=== PATIENT | male | born 1980 | race Caucasian/White ===

== ENCOUNTER 2020-01-01 11:24 | Inpatient (IN) | payer SELFPAY ==
[2020-01-01 13:10] LABS: ABS Eosinophils 0.1 10^3/ul (0-0.6); ABS Lymphocytes 2.4 10^3/ul (1.0-4.8); ABS Monocytes 0.8 10^3/ul (0-0.8); ABS Neutrophils 6.1 10^3/ul (1.5-7.7); Eosinophil % 0.6 %; Hematocrit 41 % (42-52); Lymphocyte % 25.7 %; Mean Corpuscular HGB Conc 34 g/dL (31-36); Mean Corpuscular Hemoglobin 29 pg (27-31); Mean Corpuscular Volume 85 fL (80-94); Mean Platelet Volume 8.3 fL (7.4-10.4); Platelet Count 313 10^3/uL (150-450); Red Blood Count 4.82 10^6 /uL (4.18-5.48); Red Cell Distribution Width 14 % (10-15); White Blood Count 9.3 10^3/uL (3.5-10.8)
[2020-01-01 13:19] LABS: INR 1.11 (0.82-1.09)
[2020-01-01 13:32] LABS: ALT 43 U/L (7-52); AST 50 U/L (13-39); Albumin 5.2 g/dL (3.2-5.2); Albumin/Globulin Ratio 1.5 (1-3); Alkaline Phosphatase 66 U/L (34-104); Anion Gap 8 mmol/L (2-11); BUN/Creatinine Ratio 10.9 (8-20); Blood Urea Nitrogen 10 mg/dL (6-24); CO2 Carbon Dioxide 28 mmol/L (22-32); Calcium 9.9 mg/dL (8.6-10.3); Chloride 101 mmol/L (101-111); EGFR African American 111.4 (>60); EGFR Non-African American 92.1 (>60); Globulin 3.4 g/dL (2-4); Glucose 93 mg/dL (70-100); Sodium 137 mmol/L (135-145); Total Protein 8.6 g/dL (6.4-8.9)
[2020-01-01 13:34] LABS: Troponin I 5.22 ng/mL (<0.03)
[2020-01-01] MEDS ORDERED: Aspirin 81 mg CHEW TAB* 81 MG TAB.CHEW PO ONE (13:39)
--- NOTE | 2020-01-01 13:51 | ED ---
HPI Chest Pain - HPI Summary HPI Summary: Patient is a 39-year-old male with no significant past medical history presenting to the ED with a 2 day history of feeling "off." States at 5am yesterday he awoke to use the restroom, had SOB and some visual changes with no associated CP. Laid back down and continued to not feel well with lightheadedness. Later than morning, laid in bed all day not feeling himself. Did endorse some episodes of chest tightness without pain throughout the day. Associated SOB. He also endorses feeling losing his breath while walking from the bedroom to the bathroom yesterday. [place] like this morning his heart was skipping a beat. He states all symptoms have been running together and he is unsure which started first, etc. No cough, congestion, N/V, diaphoresis. Did endorse a SEXTON yesterday, but none currently. On arrival to the ED - pt states he is asympatomatic. He denies any cardiac history. He denies smoking, quit 5 years ago. Takes no medications. Family hx includes grandmother with "heart things." Denies other family members with cardiac problems. Denies any recent illness. - History of Current Complaint Chief Complaint: EDGeneral Time Seen by Provider: 01/01/20 11:45 Hx Obtained From: Patient Onset/Duration: Started Days Ago Time of Onset: 05:00 - on 12/31/19 Timing: Intermittent Initial Severity: Moderate Current Severity: None Pain Intensity: 0 Pain Scale Used: 0-10 Numeric Chest Pain Location: Diffuse Chest Pain Radiates: No Aggravating Factor(s): Exertion Alleviating Factor(s): Nothing Associated Signs and Symptoms: Positive: Chest Pain, Vision Changes, Anxiety, Recent Stress, Dizziness, Shortness of Breath, Lightheadedness, Palpitations. Negative: Diaphoresis, Nausea, Cough, Productive Cough, Nonproductive Cough - Risk Factors AMI/ACS Risk Factors: Family History, Smoking - Allergy/Home Medications Allergies/Adverse Reactions: Allergies Allergy/AdvReac Type Severity Reaction Status Date / Time No Known Allergies Allergy Verified 01/01/20 11:28 Home Medications: Home Medications NK [No Home Medications Reported] 01/01/20 [History Confirmed 01/01/20] PMH/Surg Hx/FS Hx/Imm Hx Previously Healthy: Yes - Immunization History Hx Pertussis Vaccination: No Immunizations Up to Date: Yes Infectious Disease History: No Infectious Disease History: Denies: Hx Clostridium Difficile, Hx Hepatitis, Hx Human Immunodeficiency Virus (HIV), Hx of Known/Suspected MRSA, Hx Shingles, Hx Tuberculosis, Hx Known/ Suspected VRE, Hx Known/Suspected VRSA, History Other Infectious Disease, Traveled Outside the [place] in Last 30 Days - Social History Occupation: Employed Full-time Lives: With Family Alcohol Use: None Hx Substance Use: No Substance Use Type: Reports: None Hx Tobacco Use: Yes Smoking Status (MU): Former Smoker Amount Used/How Often: 1/2 ppd Review of Systems Negative: Fever, Chills, Fatigue, Skin Diaphoresis Negative: Blurred Vision, Diplopia, Drainage Positive: Chest Pain - (pressure). Negative: Palpitations Negative: Shortness Of Breath, Cough Genitourinary: Negative Positive: no symptoms reported, see HPI Negative: Arthralgia, Myalgia Neurological/Mental Status: Other - dizziness Positive: Headache All Other Systems Reviewed And Are Negative: Yes Physical Exam Triage Information Reviewed: Yes Vital Signs On Initial Exam: Initial Vitals Temp Pulse Resp BP Pulse Ox 96.7 F 107 16 136/95 96 01/01/20 11:25 01/01/20 11:25 01/01/20 11:25 01/01/20 11:25 01/01/20 11:25 Vital Signs Reviewed: Yes Appearance: Positive: Well-Appearing, Well-Nourished Skin: Positive: Warm, Skin Color Reflects Adequate Perfusion Head/Face: Positive: Normal Head/Face Inspection Eyes: Positive: EOMI, CABRERA, Conjunctiva Clear Neck: Positive: Supple, No Lymphadenopathy Respiratory/Lung Sounds: Positive: Clear to Auscultation, Breath Sounds Present Cardiovascular: Positive: RRR, Pulses are Symmetrical in both Upper and Lower Extremities Musculoskeletal: Positive: Normal, Strength/ROM Intact Neurological: Positive: Speech Normal Psychiatric: Positive: Normal, Affect/Mood Appropriate Procedures - Sedation Patient Received Moderate/Deep Sedation with Procedure: No Diagnostics - Vital Signs Vital Signs Temp Pulse Resp BP Pulse Ox 01/01/20 12:38 77 16 124/82 99 01/01/20 12:08 100 26 128/101 98 01/01/20 12:01 87 13 96 01/01/20 11:25 96.7 F 107 16 136/95 96 - Laboratory Lab Results: Lab Results 01/01/20 01/01/20 01/01/20 Range/Units 13:02 13:02 13:02 WBC 9.3 (3.5-10.8) 10^3/uL RBC 4.82 (4.18-5.48) 10^6 /uL Hgb 14.0 (14.0-18.0) g/dL Hct 41 L (42-52) % MCV 85 (80-94) fL MCH 29 (27-31) pg MCHC 34 (31-36) g/dL RDW 14 (10-15) % Plt Count 313 (150-450) 10^3/uL MPV 8.3 (7.4-10.4) fL Neut % (Auto) 65.1 % Lymph % (Auto) 25.7 % Monroe % (Auto) 8.1 % Eos % (Auto) 0.6 % Baso % (Auto) 0.5 % Absolute Neuts (auto) 6.1 (1.5-7.7) 10^3/ul Absolute Lymphs (auto) 2.4 (1.0-4.8) 10^3/ul Absolute Monos (auto) 0.8 (0-0.8) 10^3/ul Absolute Eos (auto) 0.1 (0-0.6) 10^3/ul Absolute Basos (auto) 0.0 (0-0.2) 10^3/ul Absolute Nucleated RBC 0.0 10^3/ul Nucleated RBC % 0.0 INR (Anticoag Therapy) 1.11 H (0.82-1.09) Sodium 137 (135-145) mmol/L Potassium 4.0 (3.5-5.0) mmol/L Chloride 101 (101-111) mmol/L Carbon Dioxide 28 (22-32) mmol/L Anion Gap 8 (2-11) mmol/L BUN 10 (6-24) mg/dL Creatinine 0.92 (0.67-1.17) mg/dL Est GFR ( Amer) 111.4 (>60) Est GFR (Non-Af Amer) 92.1 (>60) BUN/Creatinine Ratio 10.9 (8-20) Glucose 93 (70-100) mg/dL Calcium 9.9 (8.6-10.3) mg/dL Total Bilirubin 0.50 (0.2-1.0) mg/dL AST 50 H (13-39) U/L ALT 43 (7-52) U/L Alkaline Phosphatase 66 (34-104) U/L Troponin I 5.22 H* (<0.03) ng/mL Total Protein 8.6 (6.4-8.9) g/dL Albumin 5.2 (3.2-5.2) g/dL Globulin 3.4 (2-4) g/dL Albumin/Globulin Ratio 1.5 (1-3) Result Diagrams: 01/01/20 13:02 01/01/20 13:02 Lab Statement: Any lab studies that have been ordered have been reviewed, and results considered in the medical decision making process. Chest Pain Course/Dx - Course Course Of Treatment: This patient is evaluated for chest tightness, SOB, lightheadedness over the past 36 hours. Denies fevers, sweats or chills. Denies cough or congestion. Labs obtained which shows an elevated troponin of 5.22. This was confirmed by a 5.0 troponin. Pt was given aspirin. Continues to be asympatomatic. EKG shows a rate of 88, normal sinus rhythm. Discussed with Dr. Bassett and ROSIO Hanks. Will be admitted. - Chest Pain Differential Diagnosis/HQI/PQRI: Acute UT, Angina, Other: - elevated trop - Diagnoses Provider Diagnoses: Elevated troponin, Dizziness - Provider Notifications Discussed Care Of Patient With: Angel Bassett Discharge ED - Sign-Out/Discharge Documenting (check all that apply): Patient Departure - Discharge Plan Condition: Fair Disposition: ADMITTED TO [facility] Referrals: No Primary Care Phys,NOPCP [Primary Care Provider] - - Billing Disposition and Condition Condition: FAIR Disposition: Admitted to [facility]
[2020-01-01 15:36] LABS: Influenza A Molecular Negative (Negative); Influenza B Molecular Negative (Negative)
[2020-01-01 16:29] LABS: Troponin I 5.43 ng/mL (<0.03)
[2020-01-01] MEDS ORDERED: Acetaminophen TAB* 325 MG PO PRN (16:54)
[2020-01-01] MEDS ORDERED: Perflutren Lipid Microsphere* 3 ML VIAL ONE (16:58)
--- NOTE | 2020-01-01 17:54 | ECHO ---
*[facility]* [place] [address] Fax #: [phone] Transthoracic Echocardiogram Patient: Myke Ro : 1980 Study Date: 01/01/2020 Age: 39 Gender: M HR: 94 bpm Height: 71 in /180.3 cm BSA: 2.42 m^2 Weight: 249.5 lb /113.4 kg BMI: 34.9 kg/m^2 *Costuming Supervisor: Michelle Banks [facility] *Referring Physician: * Eliseo Pérez MD *Reading Physician: * Eliseo Pérez MD Indications: Chest Pain, unspecified. History: Risk factors: Former tobacco use. Family history is significant for coronary artery disease. Conclusions Summary: - Left ventricle: The cavity size is normal. Wall thickness is mildly increased. Systolic function is normal. The estimated ejection fraction is 55-60%. Hypokinesis of the basal-midinferolateral and inferior myocardium. - Right ventricle: The cavity size is normal. Systolic function is normal. - Left atrium: The atrium is normal in size. - Pericardium, extracardiac: There is no significant pericardial effusion. - Pulmonary arteries: Systolic pressure can not be accurately estimated. - No significant valvular abnormalities noted. Recommendations: None prior for comparison. Study data: Transthoracic echocardiogram. Procedure: Transthoracic echocardiography was performed. Image quality was fair. Intravenous Definity , 2 mlswas administered. Complete 2D, spectral Doppler, and color flow Doppler. Location: Emergency department. Patient status: Inpatient. Patient room number: 10. Rhythm: Normal sinus rhythm. Findings Left ventricle: The cavity size is normal. Wall thickness is mildly increased. Systolic function is normal. The estimated ejection fraction is 55-60%. Regional wall motion abnormalities: Hypokinesis of the basal-midinferolateral and inferior myocardium. There is no consistent Doppler evidence of clinically significant diastolic dysfunction. Right ventricle: The cavity size is normal. Systolic function is normal. Left atrium: The atrium is normal in size. Right atrium: The atrium is normal in size. Mitral valve: The leaflets are normal thickness. There is no evidence of stenosis. There is no significant regurgitation. Aortic valve: The valve is trileaflet. The leaflets are normal thickness. There is no evidence of stenosis. There is no significant regurgitation. Tricuspid valve: The leaflets are normal thickness. There is no evidence of stenosis. There is trace regurgitation. Pulmonic valve: The leaflets are normal thickness. There is no evidence of stenosis. There is trace regurgitation. Aorta: The aortic root appears normal. The aortic arch appears normal. Pericardium: There is no significant pericardial effusion. Pulmonary arteries: Systolic pressure can not be accurately estimated. Systemic veins: Inferior vena cava: Not well visualized. Measurements Left ventricle Value Ref Aortic valve continued Value Ref TATA, LAX 4.3 cm 4.2 - 5.8 Janessa diam/bsa, ED 0.9 cm/m^2 ---- ESD, LAX 3.5 cm 2.5 - 4.0 Peak v, S 1.4 m/sec ---- FS, LAX (L) 18 % 25 - 43 VTI, S 26.5 cm ---- PW, ED, LAX (H) 1.3 cm 0.6 - 1.0 Mean grad, S 5.1 mm Hg ---- E', lat janessa, TDI 11.2 cm/sec >=10.0 Peak grad, S 7.8 mm H g ---- E/e', lat janessa, 7 TDI Mitral valve Value Ref E', med janessa, TDI 8.0 cm/sec >=7.0 Peak E 0.83 m/se c ---- E/e', med janessa, 10 Peak A 0.65 m/sec ---- TDI Decel time 158 ms ---- E', avg, TDI 9.6 cm/sec Peak grad, D 2.7 mm Hg ---- E/e', avg, TDI 9 <=14 Peak E/A ratio 1.28 ---- LVOT Value Ref Pulmonic valve Value Ref Peak kristen, S 1.01 m/sec Peak v, S 1 m/sec ---- VTI, S 22.5 cm Peak grad, S 4.0 mm Hg ---- Peak grad, S 4 mm Hg Mean grad, S 3 mm Hg Aortic root Value Ref Root diam 3.2 cm <4 .2 Ventricular septum Value Ref IVS, ED (H) 1.2 cm 0.6 - 1.0 Ascending aorta Value Ref AAo AP diam, S 2.8 cm ---- Right ventricle Value Ref AAo AP diam/bsa, S 1.1 cm/m^2 ---- TATA, LAX 3.0 cm Aortic arch Value Ref Left atrium Value Ref Arch diam 3.0 cm ---- AP dim, ES (H) 4.21 cm 3.00 - 4.00 Decending aorta Value Ref ML dim, A4C 4.1 cm Makenna peak kristen 1.12 m/sec ---- SI dim, A4C 5.7 cm Vol/bsa, ES, 2-p 22 ml/m^2 16 - 34 Pulmonary veins Value Ref Peak v, S 0.52 m/sec ---- Right atrium Value Ref Peak v, D 0.47 m/sec ---- SI dim, ES 4.5 cm 3.4 - 5.3 Peak S/D ratio 1.12 ---- ML dim, ES, A4C 4.3 cm 2.6 - 4.4 A rev duration 107 ms ---- Estimated RAP 8 mm Hg Aortic valve Value Ref Janessa diam, ED 2.3 cm Legend: (L) and (H) jean carlos values outside specified reference range. Prepared and electronically signed by Eliseo Pérez MD 01/01/2020 17:54
--- NOTE | 2020-01-01 18:09 | CONSULT ---
Subjective Date of Service: 01/01/20 Interval History: Admission and consult 01/01/2020 PCP: None Service: Hospitalist CC: chest pain Reason for consult: NSTEMI HPI Myke Ro is a 39 year old man with history as below. Yesterday at 5 AM went to bathroom told felt left upper chest pressure. Lasted 10 minutes. Went on and off would resolve with focus on breathing. Yesterday evening had chest pressure for seconds. Total discomfort time yesterday was 30 minute or less. No gI upset, dyspnea, edema, palpitations or syncope. Asymptomatic all day today. and mother in law convinced him to come to hospital today. Ruled in for ACS. No blood transfusions or PUD. Low iron as a child. 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 Quit smoking 5 years ago (8 pack years) No alcohol Smoking marijuana daily Fam hx: No first degree relative with early cv events Allergies: NKDA Medications Active Medications: Active Medications Generic Name Dose Route Start Last Admin Trade Name Freq PRN Reason Stop Dose Admin Acetaminophen 650 mg 01/01/20 16:54 Tylenol Tab* PO Q4H PRN mild to moderate pain Aspirin 81 mg 01/02/20 09:00 Aspirin 81 Mg Chew Tab* PO DAILY [facility] Atorvastatin Calcium 80 mg 01/01/20 21:00 Lipitor* PO 2100 [facility] Heparin Sodium (Porcine) 0 units 01/01/20 17:57 Heparin Vial(*) IV .BOLUS PRN HEPARIN DRIP PROTOCOL Heparin Sodium/Dextrose 25,000 units in 500 mls @ 0 mls/hr 01/01/20 17:00 Heparin Drip 25,000 Units(*) IV PER RATE [facility] Protocol Per Protocol Losartan Potassium 25 mg 01/02/20 09:00 Cozaar Tab* PO DAILY [facility] Metoprolol Tartrate 25 mg 01/01/20 21:00 Lopressor Tab* PO BID [facility] Ticagrelor 180 mg 01/01/20 18:30 Brilinta* PO 01/01/20 18:31 ONCE ONE Ticagrelor 90 mg 01/02/20 09:00 Brilinta* PO BID [facility] Home Medications: NK [No Home Medications Reported] 01/01/20 [History Confirmed 01/01/20] Review of Systems - Measurements Intake and Output: Intake and Output Last 24 Hours 12/30/19 12/31/19 01/01/20 01/02/20 06:59 06:59 06:59 06:59 Weight 250 lb - Review of Systems Constitutional Symptoms: Negative: Weight Gain, Weight Loss, Weakness, Fatigue, Fever, Night Sweats Dermatology: Negative: Rash, Skin Lesions HEENT: Negative: Change in Hearing, Vertigo Eyes: Negative: Change in Vision, Double Vision Thyroid: Negative: Palpitations, Weight Loss, Weight Gain Pulmonary: Negative: Cough, Sputum, Hemoptysis, Respiratory Distress, Shortness of Breath Cardiology: Positive: Chest Pain Negative: Shortness of Breath, Palpitations, Swelling of Ankles, Peripheral Vascular Dis, Edema, Syncope, Paroxysmal Nocturnal Dyspnea, Orthopnea Gastroenterology: Negative: Abdominal Pain, Nausea, Vomiting, Anorexia, Blood in Stools, Haematemesis, Melena Genital - Urinary: Positive: Other Negative: Dysuria, Hematuria, Nocturia Musculoskeletal: Negative: Joint Pain, Joint Stiffness Endocrinology: Positive: Obesity Negative: Polydipsia, Polyuria Hematologic/Lymphatic: Negative: Use of Anticoagulant, Use of Antiplatelet Drugs Neurology: Negative: Change in Speech, Change in Sphincter Function, Change in Walking, Hx of Stroke\TIA, Hx Seizures Psychiatry: Negative: Unusual Anxiety, Suicidal Ideation Allergic/Immunologic: Negative: Hx HIV, Immunocompromise Review of Systems Statement: All other review of systems negative, unless stated above. Objective Vital Signs: Temp Pulse Resp BP Pulse Ox 96.7 F 79 10 119/82 98 01/01/20 11:25 01/01/20 16:25 01/01/20 16:25 01/01/20 16:25 01/01/20 16:25 Appearance: nad, pleasant Ears/Nose/Mouth/Throat: Clear Oropharnyx, Mucous Membranes Moist Neck: NL Appearance and Movements; NL JVP Respiratory: Symmetrical Chest Expansion and Respiratory Effort, Clear to Auscultation Cardiovascular: NL Sounds; No Murmurs; No JVD, RRR, No Edema Abdominal: NL Sounds; No Tenderness; No Distention Extremities: No Edema Skin: No Rash or Ulcers Neurological: Alert and Oriented x 3 Laboratory Results: 01/01/20 13:02 01/01/20 13:02 INR (Anticoag Therapy) 1.11 (0.82-1.09) H 01/01/20 13:02 Total Bilirubin 0.50 mg/dL (0.2-1.0) 01/01/20 13:02 AST 50 U/L (13-39) H 01/01/20 13:02 ALT 43 U/L (7-52) 01/01/20 13:02 Alkaline Phosphatase 66 U/L (34-104) 01/01/20 13:02 Total Protein 8.6 g/dL (6.4-8.9) 01/01/20 13:02 Albumin 5.2 g/dL (3.2-5.2) 01/01/20 13:02 Globulin 3.4 g/dL (2-4) 01/01/20 13:02 Albumin/Globulin Ratio 1.5 (1-3) 01/01/20 13:02 01/01/20 01/01/20 13:02 15:55 Troponin I 5.22 H* 5.43 H* Diagnostic Imaging: Transthoracic Echocardiogram Study Date: 01/01/2020 Conclusions Summary: - Left ventricle: The cavity size is normal. Wall thickness is mildly increased. Systolic function is normal. The estimated ejection fraction is 55-60%. Hypokinesis of the basal-midinferolateral and inferior myocardium. - Right ventricle: The cavity size is normal. Systolic function is normal. - Left atrium: The atrium is normal in size. - Pericardium, extracardiac: There is no significant pericardial effusion. - Pulmonary arteries: Systolic pressure can not be accurately estimated. - No significant valvular abnormalities noted. Exam Date: 01/01/20 CHEST PA & LAT 2 VWS IMPRESSION: No acute cardiopulmonary process by radiograph EKG Data: ekg nsr, inferior OH, old Assessment/Plan Mr. Ro is a 39 year old man with obesity and prior tobacco use admitted with NSTEMI suspected type 1 OH, asymptomatic without recurrent angina, CHF, hemodynamic instability or arrhythmias. - Start ACS treatment as above (orders changed as above) - Lipid panel pending - Cardiac catheterization with intent for revascularization indicated and recommended. Risks, benefits and alternatives discussed and patient wishes to proceed.
[2020-01-01] MEDS ORDERED: Ticagrelor* 90 MG TAB PO ONE (18:30)
--- NOTE | 2020-01-01 19:31 | HP ---
CC: [facility]* HISTORY AND PHYSICAL: DATE OF ADMISSION: 01/01/20 PRIMARY CARE PROVIDER: None; [facility]. ATTENDING PHYSICIAN: Dr. Angel Bassett * (dictated by GRUPO [place]). CHIEF COMPLAINT: Chest pain. HISTORY OF PRESENT ILLNESS: Mr. Ro is a 39-year-old male with no past medical history, who has not sought medical attention for 15 to 20 years, who presented to the ER today with complaints of chest pain. He states he woke yesterday, went to the bathroom, came back, and then developed sudden onset chest pain in the left upper chest for approximately 10 minutes. He laid down and the pain went away. Approximately 15 minutes later, he developed chest pain again that lasted 10 minutes. He reports that the pain at that time was "extreme pain." He reports that he has had chest discomfort since that time that he describes as a pressure and notes that this has been intermittent while at work today. He denies associated dyspnea, diaphoresis, nausea, radiation of pain. He reports that the pain is not associated with activity, eating. He reports that the pain is nonpleuritic. He denies palpation, dizziness, lightheadedness, abdominal pain, nausea, vomiting, diarrhea or constipation. He denies substance abuse. He is a former smoker and quit 5 years ago. He reports no recent travel. In the ER, the patient received a full workup. CBC was unremarkable. Chem panel shows a mildly elevated AST and elevated troponins of 5.22, 5.43. An EKG shows a rate of [address] changes. Chest x-ray is unremarkable. In the ER , the patient was given 324 mg of aspirin. The hospitalist team was asked to evaluate the patient for admission. PAST MEDICAL HISTORY: No medical history. The patient reports he has not seen a medical provider in 15 to 20 years. PAST SURGICAL HISTORY: None. MEDICATIONS: No medications. DRUG ALLERGIES: No known drug allergies. FAMILY HISTORY: The patient reports that his father and mother are alive and healthy, but reports that both have had CVAs. Maternal grandmother had stent placement. Paternal grandfather had heart surgery. No family history of diabetes or cancer. SOCIAL HISTORY: The patient quit smoking 5 years ago. Prior to that, he has a 10- pack-year smoking history. He drinks less than weekly. He does not use illicit drugs. He lives with his partner and his child. 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 REVIEW OF SYSTEMS: A 14-point review of systems has been performed and all the pertinent positives and negatives are in the HPI. All other systems are negative. PHYSICAL EXAMINATION GENERAL: Mr. Ro is a young, obese white male, who is sitting up in bed. He appears to be in no acute distress. He is breathing comfortably on room air. He is pleasant, cooperative, appropriate. HEENT: PERRL. EOMI. Nonicteric sclerae without injection. Hearing is grossly intact. Oral mucous membranes are moist. There are no lesions. The pharynx is clear. The tongue is at midline. Palate elevates symmetrically. PULMONARY: Chest wall nontender to palpation. Symmetrical chest expansion without use of accessory muscles. Clear to auscultation bilaterally. No rhonchi, wheeze or rales. CARDIOVASCULAR: Regular rate and rhythm with S1, S2 present. There are no murmurs, rubs, clicks or gallops. There is no JVD. There is no peripheral edema. ABDOMEN: Bowel sounds in all quadrants. Soft and nontender to palpation. MUSCULOSKELETAL: Full range of motion without pain or deformities. NEURO: The patient is awake. He is alert and oriented x3. Cranial nerves II through XII are grossly intact. He is able to move all of his extremities with the motor strength of 5/5 bilaterally in the upper and lower extremities. DIAGNOSTIC STUDIES/LAB DATA: 1. CBC: WBC 9.8, hemoglobin 14, hematocrit 41, MCV 85, platelets 313. 2. CMP: Sodium 137, potassium 4, chloride 101, carbon dioxide 28, BUN 10, creatinine 0.92, glucose 93, AST 50. Troponin 5.22, 5.43. 3. EKG: Rate of [address] changes. 4. Chest x-ray: Impression: No acute cardiopulmonary process by radiograph. ASSESSMENT AND PLAN: Mr. Ro is a 39-year-old male with no past medical history, lost to followup for 15 to 20 years, who presented to the ER today with complaints of chest pain and was found to have an elevated troponin without EKG changes. The patient will be admitted observation for: 1. NSTEMI. Mr. Ro presents with 2 days of chest pain. EKG shows no ST changes, but the patient has an elevated troponin greater than 5 x2. He will be admitted on telemetry for NSTEMI. He has been started on the heparin drip. At this point, it appears that he has no risk factors, although he has been lost to followup, so his medical history is not terribly reliable. Hemoglobin A1c and lipid panel will be drawn. In the meantime, other causes of possible NSTEMI should be explored. There is a drug screen pending, although the patient does deny illicit drug use. An echo has been ordered to further evaluate cardiac function. Cardiology has been consulted and has agreed to see the patient. 2. DVT prophylaxis: According to DVT Risk Assessment, the patient scores 1 placing him at low risk. He has been started on heparin drip. 3. Code status: Full code. TIME SPENT: Approximately 70 minutes was spent on this admission, greater than half that time was spent [id number] with the patient, obtaining history, performing physical, and reviewing the plan of care. The case has been discussed with my attending, Dr. Bassett, who is in agreement with the plan of care. GRUPO MONTILLA [id number]/CPS #: [id number] OLIVERIO
[2020-01-01] MEDS: Atorvastatin* 80 MG TAB PO SCH (20:24)
[2020-01-01] MEDS: Metoprolol Tartrate TAB* 25 MG PO SCH (20:24)
[2020-01-01] MEDS: Heparin VIAL(*) 5000 UNITS/ML VIAL (FIVE THOUSAND) IV PRN (20:25)
[2020-01-01] MEDS: Heparin DRIP 25,000 UNITS(*) 25,000 UNITS/500 ML BAG IV SCH (20:27)
[2020-01-01 20:37] LABS: Troponin I 4.16 ng/mL (<0.03)
[2020-01-02 00:48] LABS: Troponin I 5.37 ng/mL (<0.03)
[2020-01-02 03:04] LABS: BUN/Creatinine Ratio 12.6 (8-20); Calcium 9.5 mg/dL (8.6-10.3); EGFR African American 107.4 (>60); EGFR Non-African American 88.7 (>60); HDL Cholesterol 35.9 mg/dL
[2020-01-02 03:09] LABS: Troponin I 6.02 ng/mL (<0.03)
[2020-01-02] MEDS: Heparin VIAL(*) 5000 UNITS/ML VIAL (FIVE THOUSAND) IV PRN ×3 (03:47→17:48)
[2020-01-02 05:07] LABS: ABS Basophils 0.1 10^3/ul (0-0.2); ABS Eosinophils 0.1 10^3/ul (0-0.6); ABS Lymphocytes 2.7 10^3/ul (1.0-4.8); ABS Monocytes 1.3 10^3/ul (0-0.8); ABS Neutrophils 6.3 10^3/ul (1.5-7.7); Eosinophil % 0.5 %; Hematocrit 40 % (42-52); Hemoglobin 13.7 g/dL (14.0-18.0); Lymphocyte % 25.6 %; Mean Corpuscular HGB Conc 34 g/dL (31-36); Mean Corpuscular Hemoglobin 29 pg (27-31); Mean Corpuscular Volume 86 fL (80-94); Mean Platelet Volume 8.2 fL (7.4-10.4); Nucleated Red Blood Cells % 0.1; Platelet Count 279 10^3/uL (150-450); Red Cell Distribution Width 14 % (10-15); White Blood Count 10.4 10^3/uL (3.5-10.8)
[2020-01-02 05:22] LABS: Troponin I 6.19 ng/mL (<0.03)
[2020-01-02 08:24] LABS: Urine Benzodiazepine Screen None Detected (None Detect); Urine Buprenorphine Screen Presumptive Positive (None Detect); Urine Hydrocodone Screen None Detected (None Detect); Urine Opiates Screen None Detected (None Detect)
[2020-01-02] MEDS: Ticagrelor* 90 MG TAB PO SCH ×2 (08:44→20:17)
[2020-01-02] MEDS: Aspirin 81 mg CHEW TAB* 81 MG TAB.CHEW PO SCH (08:44)
[2020-01-02] MEDS: Metoprolol Tartrate TAB* 25 MG PO SCH ×2 (08:45→20:11)
[2020-01-02] MEDS: Losartan TAB* 25 MG PO SCH (08:45)
--- NOTE | 2020-01-02 11:02 | PN ---
Subjective Date of Service: 01/02/20 Interval History: Pt feels well, has not had CP since admission Objective Active Medications: Acetaminophen (Tylenol Tab*) 650 mg PO Q4H PRN PRN Reason: mild to moderate pain Aspirin (Aspirin 81 Mg Chew Tab*) 81 mg PO DAILY [facility] Last Admin: 01/02/20 08:44 Dose: 81 mg Atorvastatin Calcium (Lipitor*) 80 mg PO 2100 [facility] Last Admin: 01/01/20 20:24 Dose: 80 mg Heparin Sodium (Porcine) (Heparin Vial(*)) 0 units IV .BOLUS PRN PRN Reason: HEPARIN DRIP PROTOCOL Last Admin: 01/02/20 10:50 Dose: 2,000 units Heparin Sodium/Dextrose (Heparin Drip 25,000 Units(*)) 25,000 units in 500 mls @ 0 mls/hr IV PER RATE [facility]; Protocol Last Admin: 01/01/20 20:27 Dose: 20 mls/hr Losartan Potassium (Cozaar Tab*) 25 mg PO DAILY [facility] Last Admin: 01/02/20 08:45 Dose: 25 mg Metoprolol Tartrate (Lopressor Tab*) 25 mg PO BID [facility] Last Admin: 01/02/20 08:45 Dose: 25 mg Ticagrelor (Brilinta*) 90 mg PO BID [facility] Last Admin: 01/02/20 08:44 Dose: 90 mg Vital Signs - 8 hr 01/02/20 01/02/20 01/02/20 03:15 07:44 08:41 Temperature 98.8 F 98.3 F Pulse Rate 84 95 80 Respiratory 17 20 Rate Blood Pressure 122/62 120/82 (mmHg) O2 Sat by Pulse 98 98 Oximetry Oxygen Devices in Use Now: None Appearance: 39 yo M in nAD, aAOx3 Eyes: No Scleral Icterus, PERRLA Ears/Nose/Mouth/Throat: NL Teeth, Lips, Gums, Mucous Membranes Moist Neck: NL Appearance and Movements; NL JVP, Trachea Midline Respiratory: Symmetrical Chest Expansion and Respiratory Effort, Clear to Auscultation Cardiovascular: NL Sounds; No Murmurs; No JVD, RRR Abdominal: NL Sounds; No Tenderness; No Distention Lymphatic: No Cervical Adenopathy Extremities: No Edema Skin: No Rash or Ulcers, No Nodules or Sclerosis Neurological: Alert and Oriented x 3, NL Muscle Strength and Tone Result Diagrams: 01/02/20 04:50 02/22/20 02:37 Additional Lab and Data: Lab Results 01/01/20 01/01/20 01/01/20 Range/Units 13:02 13:02 13:02 WBC 9.3 (3.5-10.8) 10^3/uL RBC 4.82 (4.18-5.48) 10^6 /uL Hgb 14.0 (14.0-18.0) g/dL Hct 41 L (42-52) % MCV 85 (80-94) fL MCH 29 (27-31) pg MCHC 34 (31-36) g/dL RDW 14 (10-15) % Plt Count 313 (150-450) 10^3/uL MPV 8.3 (7.4-10.4) fL Neut % (Auto) 65.1 % Lymph % (Auto) 25.7 % [place] % (Auto) 8.1 % Eos % (Auto) 0.6 % Baso % (Auto) 0.5 % Absolute Neuts (auto) 6.1 (1.5-7.7) 10^3/ul Absolute Lymphs (auto) 2.4 (1.0-4.8) 10^3/ul Absolute Monos (auto) 0.8 (0-0.8) 10^3/ul Absolute Eos (auto) 0.1 (0-0.6) 10^3/ul Absolute Basos (auto) 0.0 (0-0.2) 10^3/ul Absolute Nucleated RBC 0.0 10^3/ul Nucleated RBC % 0.0 INR (Anticoag Therapy) 1.11 H (0.82-1.09) Sodium 137 (135-145) mmol/L Potassium 4.0 (3.5-5.0) mmol/L Chloride 101 (101-111) mmol/L Carbon Dioxide 28 (22-32) mmol/L Anion Gap 8 (2-11) mmol/L BUN 10 (6-24) mg/dL Creatinine 0.92 (0.67-1.17) mg/dL Est GFR ( Amer) 111.4 (>60) Est GFR (Non-Af Amer) 92.1 (>60) BUN/Creatinine Ratio 10.9 (8-20) Glucose 93 (70-100) mg/dL Calcium 9.9 (8.6-10.3) mg/dL Total Bilirubin 0.50 (0.2-1.0) mg/dL AST 50 H (13-39) U/L ALT 43 (7-52) U/L Alkaline Phosphatase 66 (34-104) U/L Troponin I 5.22 H* (<0.03) ng/mL Total Protein 8.6 (6.4-8.9) g/dL Albumin 5.2 (3.2-5.2) g/dL Globulin 3.4 (2-4) g/dL Albumin/Globulin Ratio 1.5 (1-3) Assess/Plan/Problems-Billing Assessment: 39 yo M with no significant PMHx presents with NSTEMI - Patient Problems (1) NSTEMI (non-ST elevated myocardial infarction) Comment: planned for cath today appreciate cardiology consult cont ASA/Statin/Brilinta/heparin gtt as well as metoprolol and losartan Trop has not peaked yet Echo shows EF 55-50% and wall motion abn. at inferolateral wall (2) DVT prophylaxis Comment: heparin gtt Status and Disposition: OBV
[2020-01-02 11:29] LABS: Troponin I 5.57 ng/mL (<0.03)
[2020-01-02] MEDS: Heparin DRIP 25,000 UNITS(*) 25,000 UNITS/500 ML BAG IV SCH ×2 (17:00→17:49)
[2020-01-02] MEDS: Atorvastatin* 80 MG TAB PO SCH (20:10)
[2020-01-03 06:38] LABS: ABS Basophils 0.1 10^3/ul (0-0.2); ABS Eosinophils 0.1 10^3/ul (0-0.6); ABS Lymphocytes 2.7 10^3/ul (1.0-4.8); ABS Monocytes 0.9 10^3/ul (0-0.8); ABS Neutrophils 4.1 10^3/ul (1.5-7.7); Eosinophil % 1.2 %; Hematocrit 38 % (42-52); Hemoglobin 12.9 g/dL (14.0-18.0); Lymphocyte % 34.3 %; Mean Corpuscular HGB Conc 34 g/dL (31-36); Mean Corpuscular Hemoglobin 29 pg (27-31); Mean Corpuscular Volume 85 fL (80-94); Mean Platelet Volume 8.4 fL (7.4-10.4); Platelet Count 272 10^3/uL (150-450); Red Blood Count 4.42 10^6 /uL (4.18-5.48); Red Cell Distribution Width 14 % (10-15); White Blood Count 7.7 10^3/uL (3.5-10.8)
[2020-01-03] MEDS: Heparin DRIP 25,000 UNITS(*) 25,000 UNITS/500 ML BAG IV SCH ×2 (07:55→22:13)
--- NOTE | 2020-01-03 09:50 | PN ---
Subjective Date of Service: 01/03/20 Interval History: Pt feels well, denies CP Objective Active Medications: Acetaminophen (Tylenol Tab*) 650 mg PO Q4H PRN PRN Reason: mild to moderate pain Aspirin (Aspirin 81 Mg Chew Tab*) 81 mg PO DAILY COUNTS [facility] BEDS AT [facility] Last Admin: 01/02/20 08:44 Dose: 81 mg Atorvastatin Calcium (Lipitor*) 80 mg PO 2100 [facility]S [facility]CLUDE 234 BEDS AT [facility] Last Admin: 01/02/20 20:10 Dose: 80 mg Heparin Sodium (Porcine) (Heparin Vial(*)) 0 units IV .BOLUS PRN PRN Reason: HEPARIN DRIP PROTOCOL Last Admin: 01/02/20 17:48 Dose: 2,000 units Heparin Sodium/Dextrose (Heparin Drip 25,000 Units(*)) 25,000 units in 500 mls @ 0 mls/hr IV PER RATE COUNTS INCLUDE 234 BEDS AT [facility]; Protocol Last Admin: 01/03/20 07:55 Dose: 35 mls/hr Losartan Potassium (Cozaar Tab*) 25 mg PO DAILY COUNTS INCLUDE 234 BEDS AT [facility] Last Admin: 01/02/20 08:45 Dose: 25 mg Metoprolol Tartrate (Lopressor Tab*) 25 mg PO BID COUNTS INCLUDE 234 BEDS AT [facility] Last Admin: 01/02/20 20:11 Dose: 25 mg Ticagrelor (Brilinta*) 90 mg PO BID COUNTS INCLUDE 234 BEDS AT [facility] Last Admin: 01/02/20 20:17 Dose: 90 mg Vital Signs - 8 hr 01/03/20 01/03/20 03:33 07:15 Temperature 98.6 F Pulse Rate 76 Respiratory 18 16 Rate Blood Pressure 131/76 (mmHg) O2 Sat by Pulse 97 Oximetry Oxygen Devices in Use Now: None Appearance: 39 yo M in nAD, aAOx3 Eyes: No Scleral Icterus, PERRLA Ears/Nose/Mouth/Throat: NL Teeth, Lips, Gums, Mucous Membranes Moist Neck: NL Appearance and Movements; NL JVP, Trachea Midline Respiratory: Symmetrical Chest Expansion and Respiratory Effort Cardiovascular: NL Sounds; No Murmurs; No JVD, RRR Abdominal: NL Sounds; No Tenderness; No Distention Lymphatic: No Cervical Adenopathy Extremities: No Edema Skin: No Rash or Ulcers, No Nodules or Sclerosis Neurological: Alert and Oriented x 3, NL Muscle Strength and Tone Result Diagrams: 01/03/20 06:28 01/02/20 02:37 Additional Lab and Data: Lab Results 01/01/20 01/01/2020 Range/Units 13:02 13:02 13:02 WBC 9.3 (3.5-10.8) 10^3/uL RBC 4.82 (4.18-5.48) 10^6 /uL Hgb 14.0 (14.0-18.0) g/dL Hct 41 L (42-52) % MCV 85 (80-94) fL MCH 29 (27-31) pg MCHC 34 (31-36) g/dL RDW 14 (10-15) % Plt Count 313 (150-450) 10^3/uL MPV 8.3 (7.4-10.4) fL Neut % (Auto) 65.1 % Lymph % (Auto) 25.7 % [place] % (Auto) 8.1 % Eos % (Auto) 0.6 % Baso % (Auto) 0.5 % Absolute Neuts (auto) 6.1 (1.5-7.7) 10^3/ul Absolute Lymphs (auto) 2.4 (1.0-4.8) 10^3/ul Absolute Monos (auto) 0.8 (0-0.8) 10^3/ul Absolute Eos (auto) 0.1 (0-0.6) 10^3/ul Absolute Basos (auto) 0.0 (0-0.2) 10^3/ul Absolute Nucleated RBC 0.0 10^3/ul Nucleated RBC % 0.0 INR (Anticoag Therapy) 1.11 H (0.82-1.09) Sodium 137 (135-145) mmol/L Potassium 4.0 (3.5-5.0) mmol/L Chloride 101 (101-111) mmol/L Carbon Dioxide 28 (22-32) mmol/L Anion Gap 8 (2-11) mmol/L BUN 10 (6-24) mg/dL Creatinine 0.92 (0.67-1.17) mg/dL Est GFR ( Amer) 111.4 (>60) Est GFR (Non-Af Amer) 92.1 (>60) BUN/Creatinine Ratio 10.9 (8-20) Glucose 93 (70-100) mg/dL Calcium 9.9 (8.6-10.3) mg/dL Total Bilirubin 0.50 (0.2-1.0) mg/dL AST 50 H (13-39) U/L ALT 43 (7-52) U/L Alkaline Phosphatase 66 (34-104) U/L Troponin I 5.22 H* (<0.03) ng/mL Total Protein 8.6 (6.4-8.9) g/dL Albumin 5.2 (3.2-5.2) g/dL Globulin 3.4 (2-4) g/dL Albumin/Globulin Ratio 1.5 (1-3) Assess/Plan/Problems-Billing Assessment: 39 yo M with no significant PMHx presents with NSTEMI - Patient Problems (1) NSTEMI (non-ST elevated myocardial infarction) Comment: planned for cath Saturday appreciate cardiology consult cont ASA/Statin/Brilinta/heparin gtt as well as metoprolol and losartan Trop has peaked at 6.19 on 01/02 Echo shows EF 55-50% and wall motion abn. at inferolateral wall (2) DVT prophylaxis Comment: heparin gtt Status and Disposition: OBV changed to inpatient
[2020-01-03] MEDS: Aspirin 81 mg CHEW TAB* 81 MG TAB.CHEW PO SCH (10:08)
[2020-01-03] MEDS: Metoprolol Tartrate TAB* 25 MG PO SCH ×2 (10:08→21:27)
[2020-01-03] MEDS: Losartan TAB* 25 MG PO SCH (10:09)
[2020-01-03] MEDS: Ticagrelor* 90 MG TAB PO SCH ×2 (10:09→21:27)
[2020-01-03] MEDS: Atorvastatin* 80 MG TAB PO SCH (21:26)
[2020-01-04] MEDS ORDERED: NS 0.9% 1000 ML** 1,000 ML IV SCH ×3 (00:01→17:30)
[2020-01-04 06:03] LABS: ABS Basophils 0.1 10^3/ul (0-0.2); ABS Eosinophils 0.1 10^3/ul (0-0.6); ABS Lymphocytes 2.4 10^3/ul (1.0-4.8); ABS Monocytes 0.7 10^3/ul (0-0.8); ABS Neutrophils 4.3 10^3/ul (1.5-7.7); Eosinophil % 1.6 %; Hematocrit 37 % (42-52); Hemoglobin 12.3 g/dL (14.0-18.0); Lymphocyte % 31.2 %; Mean Corpuscular HGB Conc 34 g/dL (31-36); Mean Corpuscular Hemoglobin 29 pg (27-31); Mean Corpuscular Volume 85 fL (80-94); Mean Platelet Volume 8.6 fL (7.4-10.4); Platelet Count 280 10^3/uL (150-450); Red Blood Count 4.31 10^6 /uL (4.18-5.48); Red Cell Distribution Width 13 % (10-15); White Blood Count 7.6 10^3/uL (3.5-10.8)
[2020-01-04] MEDS ORDERED: Diazepam TAB(*) 5 MG PO PRN (08:00)
[2020-01-04] MEDS ORDERED: diPHENhydraMINE PO* 25 MG PO PRN (08:00)
[2020-01-04] MEDS: Aspirin 81 mg CHEW TAB* 81 MG TAB.CHEW PO SCH (09:49)
[2020-01-04] MEDS: Metoprolol Tartrate TAB* 25 MG PO SCH ×2 (09:49→21:06)
[2020-01-04] MEDS: Ticagrelor* 90 MG TAB PO SCH ×2 (09:49→21:06)
[2020-01-04] MEDS: Losartan TAB* 25 MG PO SCH (09:49)
[2020-01-04] MEDS ORDERED: Heparin 2 UNITS/ML IVPREMIX* 2,000 ML IV ONE (10:44)
[2020-01-04] MEDS ORDERED: nitroGLYCERIN DRIP* 25,000 MCG/250 ML BTL ONE (10:44)
[2020-01-04] MEDS ORDERED: Heparin(*) 1000 UNIT/ML 10 ML VIAL CATH LAB IV ONE ×2 (10:44→11:45)
[2020-01-04] MEDS ORDERED: VERAPAMIL 2.5 MG/ML 2 ML VIAL ** 5 mg/2 ml ONE (10:44)
[2020-01-04] MEDS ORDERED: Lidocaine 1% INJ* 10 MG/ML 30 ML SDV ONE (10:45)
[2020-01-04] MEDS ORDERED: Iohexol 350 (CONTRAST) 200 ML MDV IV ONE ×2 (10:54→11:26)
[2020-01-04] MEDS ORDERED: Midazolam* 1 MG/ML 5 ML VIAL (5 MG) ONE (11:05)
[2020-01-04] MEDS ORDERED: fentaNYL* 50 MCG/ML 2 ML VIAL (100 MCG VIAL) ONE (11:05)
[2020-01-04] MEDS ORDERED: Heparin 2 UNITS/ML IVPREMIX* 1,000 ML IV ONE (11:26)
[2020-01-04] MEDS ORDERED: Nitroglycerin TAB 0.4 MG* 0.4 MG TAB SL PRN (12:21)
--- NOTE | 2020-01-04 14:16 | CATH ---
AMENDED REPORT TO CORRECT CC PHYSICIAN'S NAME CC: Dr. Eliseo Pérez * STENT REPORT: DATE OF PROCEDURE: 01/04/20 STATISTICS PROFESSOR: Dr. Eliseo Pérez. PROCEDURES: 1. Diagnostic catheterization by Dr. Gonzalez, right radial access. 2. Stent placement circumflex 3.0 x 12, Synergy drug-eluting stent, Dr. Chaudhry. 3. Aspiration thrombectomy, circumflex. HISTORY: For details, see Dr. Gonzalez's procedure report. In brief, the patient presented with a non-ST elevation infarct. Diagnostic catheterization by Dr. Gonzalez demonstrated 99% mid circumflex stenosis with distal right to left collateral filling. I was asked to perform intervention. INTERVENTIONAL MEDICATION: Heparin 11,000 units. GUIDING CATHETER: 6FL 3.5, wire 14 PT Graphix as a 14 BMW would not cross, tending to prolapse down the LAD. A 3 x 12 Synergy drug-eluting stent was deployed, post dilated with a 3 x 12 NC balloon to 18 atmospheres for 30 seconds. HEMODYNAMICS: Final BP 97/86. ANGIOGRAPHY: For the diagnostic portion, see Dr. Gonzalez's report. Mid circumflex has a 99% occlusion with a sizable thrombus, there is very faint slow antegrade filling of a moderate posterolateral. After stent deployment and postdilatation, there is no residual stenosis, the jailed small marginal branch is not compromised. There is no dissection, residual thrombus. CONCLUSION: Single-vessel disease, circumflex with 99% mid circumflex stenosis with a sizable thrombus, excellent angiographic result after aspiration thrombectomy, drug-eluting stent placement. [id number]/[facility] #: [id number] [facility]
--- NOTE | 2020-01-04 15:29 | PN ---
Subjective Date of Service: 01/04/20 Interval History: pt is seen post cath, has no complaints Objective Active Medications: Acetaminophen (Tylenol Tab*) 650 mg PO Q4H PRN PRN Reason: mild to moderate pain Aspirin (Aspirin 81 Mg Chew Tab*) 81 mg PO DAILY [facility] Last Admin: 01/04/20 09:49 Dose: 81 mg Atorvastatin Calcium (Lipitor*) 80 mg PO 2100 [facility] Last Admin: 01/03/20 21:26 Dose: 80 mg Sodium Chloride (Ns 0.9% 1000 Ml) 1,000 mls @ 100 mls/hr IV PER RATE [facility] Stop: 01/04/20 16:29 Losartan Potassium (Cozaar Tab*) 25 mg PO DAILY [facility] Last Admin: 01/04/20 09:49 Dose: 25 mg Metoprolol Tartrate (Lopressor Tab*) 25 mg PO BID [facility] Last Admin: 01/04/20 09:49 Dose: 25 mg Nitroglycerin (Nitroglycerin Tab 0.4 Mg*) 0.4 mg SL Q5M PRN PRN Reason: ANGINA Ticagrelor (Brilinta*) 90 mg PO BID [facility] Last Admin: 01/04/20 09:49 Dose: 90 mg Vital Signs - 8 hr 01/04/20 01/04/20 01/04/20 08:00 10:20 12:21 Temperature 98.2 F Pulse Rate Respiratory 16 14 Rate Blood Pressure (mmHg) O2 Sat by Pulse Oximetry 01/04/20 01/04/20 01/04/20 12:29 12:30 12:31 Temperature 98.2 F Pulse Rate 70 73 73 Respiratory 15 15 Rate Blood Pressure 119/81 119/81 (mmHg) O2 Sat by Pulse 97 98 98 Oximetry 01/04/20 01/04/20 01/04/20 12:45 13:00 13:15 Temperature Pulse Rate 68 69 74 Respiratory 19 17 13 Rate Blood Pressure 114/84 110/77 111/66 (mmHg) O2 Sat by Pulse 97 96 97 Oximetry 01/04/20 01/04/20 01/04/20 13:30 13:45 13:46 Temperature Pulse Rate 85 103 Respiratory 14 15 15 Rate Blood Pressure 105/63 116/72 (mmHg) O2 Sat by Pulse 97 96 Oximetry 01/04/20 14:00 Temperature Pulse Rate 83 Respiratory 15 Rate Blood Pressure 121/76 (mmHg) O2 Sat by Pulse 96 Oximetry Oxygen Devices in Use Now: None Appearance: 39 yo m in nAD, aAOx3 Eyes: No Scleral Icterus, PERRLA Ears/Nose/Mouth/Throat: NL Teeth, Lips, Gums, Mucous Membranes Moist Neck: NL Appearance and Movements; NL JVP, Trachea Midline Respiratory: Symmetrical Chest Expansion and Respiratory Effort, Clear to Auscultation Cardiovascular: NL Sounds; No Murmurs; No JVD, RRR Abdominal: NL Sounds; No Tenderness; No Distention Lymphatic: No Cervical Adenopathy Extremities: No Edema Skin: No Rash or Ulcers, No Nodules or Sclerosis Neurological: Alert and Oriented x 3, NL Muscle Strength and Tone Result Diagrams: 01/04/20 05:50 01/02/20 02:37 Additional Lab and Data: Lab Results 01/01/20 01/01/20 01/01/20 Range/Units 13:02 13:02 13:02 WBC 9.3 (3.5-10.8) 10^3/uL RBC 4.82 (4.18-5.48) 10^6 /uL Hgb 14.0 (14.0-18.0) g/dL Hct 41 L (42-52) % MCV 85 (80-94) fL MCH 29 (27-31) pg MCHC 34 (31-36) g/dL RDW 14 (10-15) % Plt Count 313 (150-450) 10^3/uL MPV 8.3 (7.4-10.4) fL Neut % (Auto) 65.1 % Lymph % (Auto) 25.7 % [place] % (Auto) 8.1 % Eos % (Auto) 0.6 % Baso % (Auto) 0.5 % Absolute Neuts (auto) 6.1 (1.5-7.7) 10^3/ul Absolute Lymphs (auto) 2.4 (1.0-4.8) 10^3/ul Absolute Monos (auto) 0.8 (0-0.8) 10^3/ul Absolute Eos (auto) 0.1 (0-0.6) 10^3/ul Absolute Basos (auto) 0.0 (0-0.2) 10^3/ul Absolute Nucleated RBC 0.0 10^3/ul Nucleated RBC % 0.0 INR (Anticoag Therapy) 1.11 H (0.82-1.09) Sodium 137 (135-145) mmol/L Potassium 4.0 (3.5-5.0) mmol/L Chloride 101 (101-111) mmol/L Carbon Dioxide 28 (22-32) mmol/L Anion Gap 8 (2-11) mmol/L BUN 10 (6-24) mg/dL Creatinine 0.92 (0.67-1.17) mg/dL Est GFR ( Amer) 111.4 (>60) Est GFR (Non-Af Amer) 92.1 (>60) BUN/Creatinine Ratio 10.9 (8-20) Glucose 93 (70-100) mg/dL Calcium 9.9 (8.6-10.3) mg/dL Total Bilirubin 0.50 (0.2-1.0) mg/dL AST 50 H (13-39) U/L ALT 43 (7-52) U/L Alkaline Phosphatase 66 (34-104) U/L Troponin I 5.22 H* (<0.03) ng/mL Total Protein 8.6 (6.4-8.9) g/dL Albumin 5.2 (3.2-5.2) g/dL Globulin 3.4 (2-4) g/dL Albumin/Globulin Ratio 1.5 (1-3) Assess/Plan/Problems-Billing Assessment: 39 yo M with no significant PMHx presents with NSTEMI - Patient Problems (1) NSTEMI (non-ST elevated myocardial infarction) Comment: cath showed occluded circ.-s/p clot retrieval and stenting today-doing well appreciate cardiology consult cont ASA/Statin/Brilinta as well as metoprolol and losartan Trop has peaked at 6.19 on 01/02 Echo shows EF 55-50% and wall motion abn. at inferolateral wall (2) DVT prophylaxis Comment: heparin gtt stopped, ambulation encouraged Status and Disposition: inpatient
--- NOTE | 2020-01-04 15:31 | CATH ---
"*[facility]* [place] [address] Main: [phone] [email or web address] Cardiac Catheterization Patient: Myke Ro : 1980 Study Date: 01/04/2020 Age: 39 Gender: M HR: Height: 72 in /182.9 cm BSA: 2.44 m^2 Weight: 251 lb /114.1 kg BMI: 34.1 kg/m^2 [employer] Network Engineer: Logan Gonzalez MD Ordering Physician: Logan Gonzalez MD Referring Physician: Logan Gonzalez MD, Carlos Boucher, --- - Left coronary angiography. Summary: Left circumflex: Mid-vessel lesion: There is a 100% stenosis with faint Right to left collaterals Recommendations: The patient should undergo coronary percutaneous coronary intervention. History: Medications: The patient received no antianginal therapy in the last two weeks. Labs, prior tests, procedures, and surgery: Blood tests: Troponin I (pre-procedure) of 5.57 ng/ml. International normalized ratio (INR) of 1.11. Partial thromboplastin time (PTT) of 63.3 sec. Serum potassium (K) of 4 mEq/l. Serum sodium (Na) of 135 mEq/l. Serum creatinine (current admission) of 0.95 mg/dl. Blood urea nitrogen of 12 mg/dl. Glucose of 118 mg/dl. Platelet count of 280 th/ul. White blood cell count (WBC) of 0.01 th/ul. Red blood cell count (RBC) of 4310 th/ul. Hematocrit of 37 %. Hemoglobin (pre-procedure) of 12.3 g/dl. Study data: Study status: Cardiac cath: urgent. Percutaneous coronary intervention: urgent. Percutaneous coronary intervention performed for high risk NSTEMI or unstable angina. Location: Catheterization laboratory. Consent: The risks, benefits, and alternatives to the procedure were explained to the patient and/or their healthcare u.s. representative and written informed consent was obtained. All available pre-procedure labs were reviewed. Height: 182.9 cm. 72 in. Weight: 114.1 kg. 251 lb. Body surface area: 2.44 m^2. Body mass index: 34.1 kg/m^2. Procedure: 1. Initial setup. The patient was brought to the laboratory. Surface ECG leads, blood pressure measurements, and pulse oximetric signals were monitored. A baseline seven lead ECG was recorded. A time out was observed per protocol. 2. Skin preparation. The planned puncture sites were prepped and draped in the usual sterile manner. 3. Local anesthesia. 1% lidocaine was administered. 4. Sedation. was administered. 5. Supplemental oxygen. Oxygen, 2 L/min was administered throughout the procedure. 6. Local anesthesia. 1% lidocaine (2 ml) was administered. 7. Right radial artery access. A 6F [place] Slender sheath was advanced into the vessel. 8. Selective left coronary angiography. A 5F TIG 4.0 catheter was advanced into the left coronary vessel ostium under fluoroscopic guidance. Contrast was injected. Images were obtained in multiple projections. Study completion: Minimal estimated blood loss. All catheters inserted during the procedure were removed. There were no apparent complications. Administered medications: BRILINTA (Ticagrelor), 90mg, PO. Aspirin, 81mg, PO. (Radial) Nitroglycerin, 300mcg, intra-arterially. (Radial) Verapamil, 3mg, intra-arterially. VERSED (Midazolam), for a total dose of 3mg, IV. Fentanyl, for a total dose of 50mcg, IV. NaCl 0.9% , infusion , at a rate of 100 ml/hr. Contrast: Omnipaque 350 50 ml (total dose). Radiation: Fluoroscopy dose: 192.9 cGy. Discharge: The patient tolerated the procedure well and was discharged from the lab in stable condition. Findings Coronary arteries: The coronary circulation is right dominant. Left main: Normal, 0% stenosis. LAD: Mid-vessel lesion: There is a 20% stenosis. Left circumflex: The distal vessel fills from collaterals. Mid-vessel lesion: There is a 100% stenosis. Limited collateral flow from the right posterior descending. Right coronary: Normal, 0% stenosis. Hemodynamics: + + + |Stage description |Condition 1 - | + + + |LV pressure s/d, ed |98/9, 16, dP/ax=1492 mm Hg/s| + + + |Arterial pressure s/d (m)|113/74 (91) | + + + Prepared and electronically signed by Logan Gonzalez MD 01/04/2020 15:30"
[2020-01-04] MEDS: Atorvastatin* 80 MG TAB PO SCH (21:06)
[2020-01-05 05:24] LABS: ABS Basophils 0.1 10^3/ul (0-0.2); ABS Eosinophils 0.1 10^3/ul (0-0.6); ABS Lymphocytes 2.5 10^3/ul (1.0-4.8); ABS Monocytes 0.9 10^3/ul (0-0.8); ABS Neutrophils 5.1 10^3/ul (1.5-7.7); Eosinophil % 1.7 %; Hematocrit 36 % (42-52); Hemoglobin 12.3 g/dL (14.0-18.0); Lymphocyte % 28.9 %; Mean Corpuscular HGB Conc 34 g/dL (31-36); Mean Corpuscular Hemoglobin 29 pg (27-31); Mean Corpuscular Volume 85 fL (80-94); Mean Platelet Volume 8.2 fL (7.4-10.4); Nucleated Red Blood Cells % 0.1; Platelet Count 298 10^3/uL (150-450); Red Blood Count 4.26 10^6 /uL (4.18-5.48); Red Cell Distribution Width 13 % (10-15); White Blood Count 8.7 10^3/uL (3.5-10.8)
[2020-01-05 05:41] LABS: BUN/Creatinine Ratio 13.4 (8-20); Calcium 9.1 mg/dL (8.6-10.3); EGFR African American 104.8 (>60); EGFR Non-African American 86.6 (>60); Potassium 4.2 mmol/L (3.5-5.0)
--- NOTE | 2020-01-05 08:40 | PN ---
Subjective Date of Service: 01/05/20 - NSTEMI s/p aspiration thrombectomy/DEBI to mid Lcx Interval History: No events last night. Patient denies recurrent chest pain. He is s/p LHC that resulted in aspiration thrombectomy/DEBI to mid Lcx. He denies right radial access site pain. He denies dyspnea, lightheadedness, chest pain or palpitations. He is anxious to go home Medications Active Medications: Acetaminophen (Tylenol Tab*) 650 mg PO Q4H PRN PRN Reason: mild to moderate pain Aspirin (Aspirin 81 Mg Chew Tab*) 81 mg PO DAILY [facility] Last Admin: 01/04/20 09:49 Dose: 81 mg Atorvastatin Calcium (Lipitor*) 80 mg PO 2100 [facility] Last Admin: 01/04/20 21:06 Dose: 80 mg Losartan Potassium (Cozaar Tab*) 25 mg PO DAILY [facility] Last Admin: 01/04/20 09:49 Dose: 25 mg Metoprolol Tartrate (Lopressor Tab*) 25 mg PO BID [facility] Last Admin: 01/04/20 21:06 Dose: 25 mg Nitroglycerin (Nitroglycerin Tab 0.4 Mg*) 0.4 mg SL Q5M PRN PRN Reason: ANGINA Ticagrelor (Brilinta*) 90 mg PO BID [facility] Last Admin: 01/04/20 21:06 Dose: 90 mg Objective Vital Signs: Temp Pulse Resp BP Pulse Ox 97.7 F 84 20 113/71 96 01/05/20 07:44 01/05/20 07:00 01/05/20 07:00 01/05/20 07:00 01/05/20 07:00 Oxygen Devices in Use Now: None Appearance: nad, pleasant, sitting in chair. Ears/Nose/Mouth/Throat: Clear Oropharnyx, Mucous Membranes Moist Neck: NL Appearance and Movements; NL JVP Respiratory: Symmetrical Chest Expansion and Respiratory Effort, Clear to Auscultation Cardiovascular: NL Sounds; No Murmurs; No JVD, RRR, No Edema Abdominal: NL Sounds; No Tenderness; No Distention Extremities: No Edema, - - right radial access site non tender to palpation, 3+ radial pulse. No hematoma noted. Skin: No Rash or Ulcers Neurological: Alert and Oriented x 3 Lines/Tubes/Other Access: Clean, Dry and Intact Peripheral IV Laboratory Results: 01/05/20 05:11 01/05/20 05:11 INR (Anticoag Therapy) 1.11 (0.82-1.09) H 01/01/20 13:02 APTT 36.0 seconds (26.0-38.0) 01/05/20 05:11 Total Bilirubin 0.50 mg/dL (0.2-1.0) 01/01/20 13:02 AST 50 U/L (13-39) H 01/01/20 13:02 ALT 43 U/L (7-52) 01/01/20 13:02 Alkaline Phosphatase 66 U/L (34-104) 01/01/20 13:02 Total Protein 8.6 g/dL (6.4-8.9) 01/01/20 13:02 Albumin 5.2 g/dL (3.2-5.2) 01/01/20 13:02 Globulin 3.4 g/dL (2-4) 01/01/20 13:02 Albumin/Globulin Ratio 1.5 (1-3) 01/01/20 13:02 Triglycerides 142 mg/dL 01/02/20 02:37 Cholesterol 187 mg/dL 01/02/20 02:37 LDL Cholesterol 123 mg/dL 01/02/20 02:37 HDL Cholesterol 35.9 mg/dL 01/02/20 02:37 01/01/20 01/01/20 01/01/20 13:02 15:55 20:03 Troponin I 5.22 H* 5.43 H* 4.16 H* 01/02/20 01/02/20 01/02/20 00:21 02:37 04:50 Troponin I 5.37 H* 6.02 H* 6.19 H* 01/02/20 09:43 Troponin I 5.57 H* Laboratory Results - last 24 hr 01/04/20 01/04/20 01/05/20 13:07 18:30 00:25 WBC RBC Hgb Hct MCV MCH MCHC RDW Plt Count MPV Neut % (Auto) Lymph % (Auto) Carter % (Auto) Eos % (Auto) Baso % (Auto) Absolute Neuts (auto) Absolute Lymphs (auto) Absolute Monos (auto) Absolute Eos (auto) Absolute Basos (auto) Absolute Nucleated RBC Nucleated RBC % APTT Sodium Potassium Chloride Carbon Dioxide Anion Gap BUN Creatinine Est GFR ( Amer) Est GFR (Non-Af Amer) BUN/Creatinine Ratio Glucose Calcium Total Creatine Kinase 81 95 83 01/05/20 01/05/20 01/05/20 05:11 05:11 05:11 WBC 8.7 RBC 4.26 Hgb 12.3 L Hct 36 L MCV 85 MCH 29 MCHC 34 RDW 13 Plt Count 298 MPV 8.2 Neut % (Auto) 58.7 Lymph % (Auto) 28.9 Carter % (Auto) 9.9 Eos % (Auto) 1.7 Baso % (Auto) 0.8 Absolute Neuts (auto) 5.1 Absolute Lymphs (auto) 2.5 Absolute Monos (auto) 0.9 H Absolute Eos (auto) 0.1 Absolute Basos (auto) 0.1 Absolute Nucleated RBC 0.0 Nucleated RBC % 0.1 APTT 36.0 Sodium 137 Potassium 4.2 Chloride 104 Carbon Dioxide 25 Anion Gap 8 BUN 13 Creatinine 0.97 Est GFR ( Amer) 104.8 Est GFR (Non-Af Amer) 86.6 BUN/Creatinine Ratio 13.4 Glucose 99 Calcium 9.1 Total Creatine Kinase Diagnostic Imaging: Transthoracic Echocardiogram Study Date: 01/01/2020 Conclusions Summary: - Left ventricle: The cavity size is normal. Wall thickness is mildly increased. Systolic function is normal. The estimated ejection fraction is 55-60%. Hypokinesis of the basal-midinferolateral and inferior myocardium. - Right ventricle: The cavity size is normal. Systolic function is normal. - Left atrium: The atrium is normal in size. - Pericardium, extracardiac: There is no significant pericardial effusion. - Pulmonary arteries: Systolic pressure can not be accurately estimated. - No significant valvular abnormalities noted. Exam Date: 01/01/20 CHEST PA & LAT 2 VWS IMPRESSION: No acute cardiopulmonary process by radiograph Cardiac Catheterization Report Patient: BARBARA GUEVARA /Age: 11 1980 39 Medical Record#: [id number] Admission Date: 01/02/20 Provider: Katerin Chaudhry MD AMENDED REPORT TO CORRECT CC PHYSICIAN'S NAME CC: Dr. Eliseo Pérez * STENT REPORT: DATE OF PROCEDURE: 01/04/20 ANALOG CIRCUIT DESIGNER: Dr. Eliseo Pérez. PROCEDURES: 1. Diagnostic catheterization by Dr. Brand, right radial access. 2. Stent placement circumflex 3.0 x 12, Synergy drug-eluting stent, Dr. Chaudhry. 3. Aspiration thrombectomy, circumflex. HISTORY: For details, see Dr. Gonzalez's procedure report. In brief, the patient presented with a non-ST elevation infarct. Diagnostic catheterization by Dr. Gonzalez demonstrated 99% mid circumflex stenosis with distal right to left collateral filling. I was asked to perform intervention. INTERVENTIONAL MEDICATION: Heparin 11,000 units. GUIDING CATHETER: 6FL 3.5, wire 14 PT Graphix as a 14 BMW would not cross, tending to prolapse down the LAD. A 3 x 12 Synergy drug-eluting stent was deployed, post dilated with a 3 x 12 NC balloon to 18 atmospheres for 30 seconds. HEMODYNAMICS: Final BP 97/86. ANGIOGRAPHY: For the diagnostic portion, see Dr. Gonzalez's report. Mid circumflex has a 99% occlusion with a sizable thrombus, there is very faint slow antegrade filling of a moderate posterolateral. After stent deployment and postdilatation, there is no residual stenosis, the jailed small marginal branch is not compromised. There is no dissection, residual thrombus. CONCLUSION: Single-vessel disease, circumflex with 99% mid circumflex stenosis with a sizable thrombus, excellent angiographic result after aspiration thrombectomy, drug-eluting stent placement. [id number]/[facility] #: [id number] This report is only to be considered final once signed by the Provider(s) as displayed in the "<Electronically Signed by >" field (s). Absence of a signature indicates the report is in a draft status and still needs to be finalized. In the event this document was created by someone other than the signing Provider, the individual initiating the document will be listed in the "Entered by:" or "Dictated by:" cagle. 1 of 2 EKG Data: 01/05/2020; NSR rate 72 with known inferior Q waves Telemetry reviewed. Sinus rhythm rate 70-80's occasional PVCs. NO VT Assessment/Plan #1 NSTEMI; Troponin peaked at 6.1 01/02/2020, no recurrent c/o chest pain since presentation. He is s/p aspiration thrombectomy/ DEBI to mid Lcx 01/04/2020. Right radial access site intact, no hematoma 3+ pulse. He is now on ASA 81/day, Brilinta 90 BID, Lopressor 25mg PO BID, Lipitor 80QHS. HgbA1C 5.8% he will need close f/u with [facility] to address pre diabetes for secondary prevention. He will need uninterrupted DAPT for 12 months time. activity restrictions outlined in discharge plan in addition to follow up. LVEF 55-60%. #2 HLD; LDL 123; now on high intesity statin therapy. Will need repeat FLP/LFT in 6 weeks time. Patient had mild transaminits likely due to above #1 however, again will need close follow up LFT. #3 Elevated HgbA1c ( 5.8%) Will need close follow up with [facility] to address prediabetes for secondary prevention. #4 Poly substance abuse; Utox was + cocaine. He is aware of the risk for future heart attacks in addition to coronary spasming if he uses again especially while on bblocker therapy. He states he will not use again and is aware of risk thus, will continue bblocker therapy. #5 Disposition pending course. Patient full code. Will sign off. Please ensure patient is set up with [facility] and prescription drug cost is addressed prior to discharge( patient reports not having insurance). Brilinta sent to [facility]. d/w Dr. Gonzalez who agrees with plan of care. Attending: Logan Gonzalez
[2020-01-05] MEDS: Metoprolol Tartrate TAB* 25 MG PO SCH (09:06)
[2020-01-05] MEDS: Aspirin 81 mg CHEW TAB* 81 MG TAB.CHEW PO SCH (09:06)
[2020-01-05] MEDS: Losartan TAB* 25 MG PO SCH (09:06)
[2020-01-05] MEDS: Ticagrelor* 90 MG TAB PO SCH (09:06)
[2020-01-05 10:28] VITALS: BP 132/78
--- NOTE | 2020-01-05 11:56 | DS ---
CC: [facility]; Dr. Gonzalez; Dr. Chaudhry; Dr. Eliseo Pérez; Dr. Misty Durant; Dr. Abrams * DISCHARGE SUMMARY: DATE OF ADMISSION: 01/01/20 DATE OF DISCHARGE: 01/05/20 PRIMARY CARE PROVIDER: None. DISPOSITION AT DISCHARGE: Home. CONDITION ON DISCHARGE: Stable. DIET AT DISCHARGE: Cardiac and diabetic. DIAGNOSES AT DISCHARGE: 1. [id number] myocardial infarction. 2. Prediabetes with hemoglobin A1c of 5.8. 3. Obesity. 4. Possible substance abuse. The patient's urine drug screen was positive for buprenorphine, cocaine, and cannabinoids. 5. Dyslipidemia. CONSULTATIONS DURING THE HOSPITAL STAY: Included Dr. Gonzalez and Dr. Chaudhry from Cardiology. LABORATORY DATA AND STUDIES PERFORMED DURING THE HOSPITAL STAY: Included on , sodium of 135, potassium 4.0, chloride 101, carbon dioxide 29, BUN 12, creatinine 0.95. The patient's CBC on 01/05/20: White blood cell count of 8.7 , hemoglobin of 12.3, hematocrit of 36, and platelets of 298. The patient's urine tox screen reported as above showing positive for buprenorphine, cocaine, and cannabinoids. Influenza testing was negative at admission. The patient had a cardiac catheterization procedure performed on 01/04/20, which showed 99% occlusion of the mid circumflex with a sizable thrombus. The patient received aspiration thrombectomy and drug-eluting stent placement to the circumflex artery. The patient's transthoracic echocardiogram on 01/01/20 showed EF of 55% to 60% with basal, mid, inferolateral and inferior myocardium hypokinesis. The patient's portable chest x-ray at admission, impression: "No acute cardiopulmonary abnormality." The patient's fasting lipid profile obtained on 12/31/19 showed triglycerides of 142, cholesterol total of 187, LDL of 123, and HDL of 35. The patient's hemoglobin A1c was 5.8. HOSPITALIZATION COURSE: Myke Ro is a 39-year-old male with history of obesity, who presented to the hospital complaining of chest pain. For further details, please see the patient's history and physical dictated at admission. Shortly, the patient was diagnosed with [id number] DC with troponin peaking at 6.19 on 01/02/20. The patient was treated with dual antiplatelet therapy as well as heparin drip, beta-blockers, and losartan throughout his hospital stay. He underwent a cardiac catheterization on 01/04/19, which showed almost total occlusion of the circumflex. The patient had aspiration of clot as well as stent placement into this circumflex lesion. Postoperatively, he did very well and overnight stayed in the ICU. He is ready for discharge today. The problems with the patient's discharge are related to the patient not having insurance coverage. We were in close communication with social workers and [employer]. The patient already is going to receive 1-month supply of Brilinta from our hospital pharmacy. I spoke with our social worker school, who arranged for the patient to have the rest of the patient's medications sent over to [facility] and discussed the [id number] cost with the patient who accepted that. Overall, it appears that the cost of all the medications is going to be some place close to 50 or 60 dollars for a month's supply, which the patient agrees to. The patient also is meeting with [place] bilingual inside sales representative who is setting the patient up with insurance and that should be available within the next 1 to 2 weeks. The patient also is being set up with [facility] and he is advised to call [facility] if the clinic does not call him with an appointment within the next week. He is also set up with our cardiology clinic , Dr. Eliseo Pérez, with an appointment on 01/13/20 at 7:45 a.m. The patient's urine drug screen came positive for multiple substances. The patient is not sure "what it came from," but he was strongly advised not to use any drugs including and most specifically cocaine since it can interact with his beta- juvencio. The patient also was informed that his hemoglobin A1c gives him the diagnosis of prediabetes. He underwent a nutrition evaluation and consultation. He further is going [facility] and treatment post his heart attack. The patient is going to be discharged home today with recommendations to follow up with [facility] and Dr. Pérez as mentioned above. PHYSICAL EXAMINATION: At the time of discharge, blood pressure of 132/78, heart rate of 81 and regular, respiratory rate 16, oxygen saturation 96% on room air, temperature of 97.7. General: The patient is a very pleasant 39-year -old male, who is in no acute distress. The patient is alert and oriented x3. HEENT: Head: Atraumatic, normocephalic. Eyes: Pupils are equal, reactive to light and accommodation. Oropharynx is clear. Mucosa moist. Neck: Supple. No JVD. No bruits bilaterally. Cardiovascular: Regular rate and rhythm. No murmur. Respiratory: Clear to auscultation bilaterally. Abdomen is soft, nontender. Bowel sounds are present in all 4 quadrants. Extremities: There is no edema. Pulses are 2+ bilaterally. No clubbing or cyanosis. On neuro evaluation, speech is clear. Cranial nerves II through XII grossly intact. Motor strength is 5/5 bilaterally. On evaluation of the skin, on the right radial cath approach, there is a small puncture site that is covered with small eschar. There is good radial pulse. There is no evidence of hematoma. Please note that this is a short summary of the patient's hospitalization. Please refer to further medical records for details. TIME SPENT: Approximately 45 minutes was spent on the patient's discharge. [id number]/[facility] #: [id number] OLIVERIO
== END 2020-01-05 12:50 | disposition home or self-care (01) | DRG 247 ==
LOC: ED 11:24 → MEDTELE 16:54 → OBSVTOIN 01-02 12:00 → ICU 01-04 13:12
PROVIDERS: ADMIT Internal Medicine; ATTEND Internal Medicine
PROC: 02C03ZZ Extirpation of Matter from Coronary Artery, One Artery, Percutaneous Approach (ICD-10-PCS; 2020-01-04)
PROC: B2111ZZ Fluoroscopy of Multiple Coronary Arteries using Low Osmolar Contrast (ICD-10-PCS; 2020-01-04)
PROC: 027034Z Dilation of Coronary Artery, One Artery with Drug-eluting Intraluminal Device, Percutaneous Approach (ICD-10-PCS; principal; 2020-01-04 10:45)
DX: I21.4 Non-ST elevation (NSTEMI) myocardial infarction (principal); R73.03 Prediabetes; E66.9 Obesity, unspecified; E78.5 Hyperlipidemia, unspecified; F14.10 Cocaine abuse, uncomplicated; I25.10 Atherosclerotic heart disease of native coronary artery without angina pectoris; F11.10 Opioid abuse, uncomplicated; F12.10 Cannabis abuse, uncomplicated; Z87.891 Personal history of nicotine dependence; Z68.34 Body mass index [BMI] 34.0-34.9, adult; Z28.21 Immunization not carried out because of patient refusal
CPT/HCPCS: 36415; 71046; 80048; 80053; 80061; 80307; 82550; 83036; 84484; 85025; 85610; 85730; 87641; 93005; 93306; 93458; 99285; A9270-GY; C1725; C1757; C1769; C1876; C1887; C8929; C9600-LC; G0378; G0480; J1644; J2250; J3010